=== PATIENT | male | born 1980 | race Caucasian/White ===

== ENCOUNTER 2016-12-19 19:11 | Emergency (ER) | payer OTHER ==
[2016-12-19 19:29] VITALS: BP 146/105
--- NOTE | 2016-12-19 20:05 | XRAY Preliminary Report ---
Exam: XR Foot 3 View RT IMPRESSION: Oblique fracture proximal phalanx right fifth digit with 31 degrees lateral angulation of the distal fracture fragment. [facility] SITE ID: [id number]
--- NOTE | 2016-12-19 20:07 | XRAY Report ---
EXAM: RIGHT FOOT RADIOGRAPHY EXAM DATE: 12/19/2016 07:46 PM. CLINICAL HISTORY: Injury, ran into a door. Pain right 5th toe. COMPARISON: None. TECHNIQUE: 3 views, 4 films. FINDINGS: Bones: There is an oblique fracture of the proximal phalanx right fifth digit with 31 degrees lateral angulation of the distal fracture fragment. Well-formed Achilles' heel spur. Joints: Normal. No subluxations. Soft Tissues: Soft tissue swelling right fifth digit. IMPRESSION: Oblique fracture proximal phalanx right fifth digit with 31 degrees lateral angulation of the distal fracture fragment. [facility] Referring Provider Line: [phone] SITE ID: [id number]
--- NOTE | 2016-12-19 20:20 | ED Physician Documentation ---
PD HPI LOWER EXT INJURY - Stated complaint Stated Complaint: RIGHT FOOT PX - Chief complaint Chief Complaint: Trauma Ext - History obtained from History obtained from: Patient - History of Present Illness PD HPI LOW EXT INJURY LOCATION: Right, Toe (5th) Where injury occurred: Home Timing - onset: Today Timing - details: Abrupt onset Pain level max: 5 Pain level now: 1 Improved by: Rest Worsened by: Moving, Palpating, Other (ambulating) Associated symptoms: Swelling, Discolored (ecchymosis). No: Weakness, Numbness Contributing factors: No: Anticoagulated, Prior ortho surgery, Prosthetic joint Recently seen: Not recently seen - Additional information Additional information: chasing his child at home, accidentally kicked the corner of the wall. Review of Systems Constitutional: denies: Fever, Chills Nose: denies: Rhinorrhea / runny nose, Congestion Throat: denies: Sore throat Cardiac: denies: Chest pain / pressure Respiratory: denies: Cough GI: denies: Nausea, Vomiting, Diarrhea Skin: denies: Rash Musculoskeletal: denies: Neck pain, Back pain Neurologic: denies: Focal weakness, Numbness, Headache PD PAST MEDICAL HISTORY - Past Medical History Past Medical History: Yes Cardiovascular: Hypertension, High cholesterol Derm: Psoriasis - Past Surgical History Past Surgical History: Yes General: Cholecystectomy - Present Medications Home Medications: Ambulatory Orders Medication Instructions Recorded Confirmed Hydrocodone/Acetaminophen 1 - 2 each PO Q6H PRN #10 tablet 12/19/16 [Hydrocodon-Acetaminophen 5-325] - Allergies Allergies/Adverse Reactions: Allergies Allergy/AdvReac Type Severity Reaction Status Date / Time cephalexin monohydrate * Allergy Unknown Verified 12/19/16 19:29 [From [employer]] - Social History Does the pt smoke?: Yes Smoking Status: Current every day smoker Does the pt drink ETOH?: Yes ETOH Use: Beer Does the pt have substance abuse?: No - Immunizations Immunizations are current?: Yes - POLST Patient has POLST: No PD ED PE NORMAL - Vitals Vital signs reviewed: Yes - General General: Alert and oriented X 3, No acute distress - HEENT HEENT: Moist mucous membranes - Neck Neck: Supple, no meningeal sign - Derm Derm: Warm and dry - Extremities Extremities: Other (R 5th toe deformity and ecchymosis. NVI.) - Neuro Neuro: Alert and oriented X 3 - Psych Psych: Normal mood, Normal affect Results - Vitals Vitals: Vital Signs - 24 hr 12/19/16 19:26 Temperature 36.0 C L Heart Rate 79 Respiratory 16 Rate Blood Pressure 146/105 H O2 Saturation 97 Oxygen O2 Source Room air - Rads (name of study) R foot xray Radiology: Prelim report reviewed, EMP read contemporaneously, See rad report ( Oblique fracture proximal phalanx right fifth digit with 31 degrees lateral angulation of the distal fracture fragment. ) PD MEDICAL DECISION MAKING - ED course Complexity details: reviewed results, re-evaluated patient, considered differential, d/w patient, d/w family ED course: Patient is a 36-year-old male who has a right fifth toe fracture. This was godwin taped and placed in a postoperative shoe. We will have him follow-up with orthopedics as he does not have a PCP. Neurovascularly intact. Patient counseled regarding signs and symptoms for which I believe and urgent re- evaluation would be necessary. Patient with good understanding of and agreement to plan and is comfortable going home at this time This document was made in part using voice recognition software. While efforts are made to proofread this document, sound alike and grammatical errors may occur. Departure - Departure Disposition: 01 Home, Self Care Clinical Impression: Toe fracture, right Qualifiers: Encounter type: initial encounter Toe: lesser toe Fracture type: closed Phalanx : proximal Fracture alignment: displaced Qualified Code(s): S92.511A - Displaced fracture of proximal phalanx of right lesser toe(s), initial encounter for closed fracture Condition: Good Instructions: ED Fx Toe Closed Follow-Up: your,doctor in 1 week [Other] [facility] [Provider Group] Prescriptions: Hydrocodone/Acetaminophen [Hydrocodon-Acetaminophen 5-325] 1 - 2 each PO Q6H PRN #10 tablet PRN Reason: pain Comments: Return if you worsen. Wear the post operative shoe until released by your doctor. Do not drink alcohol or drive while on narcotic pain medicine. Note that many narcotic pain relievers also contain tylenol/acetaminophen. Please ensure that your total dose of acetaminophen from all sources does not exceed 3 grams (3000mg) per day. You may constipated on this medication, take a stool softener such as "Colace" twice a day while you are on it. Also recommend a [id number] laxative such as senna or MiraLAX any day that you do not have a bowel movement. If you received narcotic pain medication in the emergency department, do not drive or operate machinery for the next 24 hours. Your blood pressure was elevated today on check in to the emergency department. This does not mean that you have hypertension, it is a common phenomenon to check into the emergency department and have elevated blood pressure. I recommend that you see your primary care physician within the week to have it rechecked when you're feeling better. Forms: Activity restrictions Discharge Date/Time: 12/19/16 21:15
[2016-12-19] MEDS ORDERED: HYDROcod/ACETAM 5/325 MG TABLET PO STA (21:07)
[2016-12-19] MEDS ORDERED: HYDROcod/ACETAM 5/325 MG TABLET ONE (21:12)
== END 2016-12-19 21:15 | disposition home or self-care (01) ==
LOC: ED 19:11
DX: S92.511A Displaced fracture of proximal phalanx of right lesser toe(s), initial encounter for closed fracture (principal); W22.01XA Walked into wall, initial encounter; Y93.02 Activity, running; Y92.018 Other place in single-family (private) house as the place of occurrence of the external cause; I10 Essential (primary) hypertension; E78.00 Pure hypercholesterolemia, unspecified; F17.200 Nicotine dependence, unspecified, uncomplicated
CPT/HCPCS: 73630; 99283; A9270